=== PATIENT | male | born 1975 | race Caucasian/White ===

== ENCOUNTER 2019-05-27 13:34 | Emergency (ER) | payer BC, SELFPAY ==
[2019-05-27 13:44] VITALS: BP 158/96; PULSE 96; RESP 18; TEMP 37.8; O2SAT 100
--- NOTE | 2019-05-27 13:50 | ED.GENADULT ---
HPI - General Adult General Chief complaint: Upper Respiratory Infection Stated complaint: congestion/body aches/cough Time Seen by Provider: 05/27/19 13:51 Source: patient and RN notes reviewed Mode of arrival: ambulatory Limitations: no limitations History of Present Illness HPI narrative: This is a 44 years old male presents to the office for an evaluation of flu/cold like symptoms since yesterday. Symptoms include body ache, headache, and sore throat. He had received influenza vaccine for the season. He does not smoke. His tested positive for strep. Related Data Home Medications Medication Instructions Recorded Confirmed famotidine 05/27/19 Allergies Allergy/AdvReac Type Severity Reaction Status Date / Time No Known Allergies Allergy Verified 05/27/19 13:47 Review of Systems Review of Systems: Narrative: CONSTITUTIONAL: Reports fever, chills ENT: Reports congestion, sore throat, otalgia. CARDIOVASCULAR: Denies chest pain RESPIRATORY: Denies dyspnea, wheezing. Reports cough GASTROINTESTINAL: Denies abdominal pain, nausea, vomiting, diarrhea. GENITOURINARY: Denies urinary symptoms or discharge SKIN: Denies rash MUSCULOSKELETAL: Denies acute back pain NEUROLOGIC: Denies lightheaded PMFSH Past Medical History Medical History (Updated 05/27/19 @ 14:00 by MEDHAT Bolden) GERD (gastroesophageal reflux disease) Mitral valve prolapse Surgical History Surgical History Hx of appendectomy Social History Social History (Updated 05/27/19 @ 13:52 by MEDHAT Bolden) Smoking status: Never smoker Comments At time of signature, I agree with nursing past medical, surgical, social and family history. There is no relevant family history pertinent to the presenting complaint. Exam Narrative: Exam Narrative: GENERAL: This is a well-nourished, well-developed patient, ill apparent without acute distress. EARS: External ears normal, auditory canals clear and without drainage, TMs normal without perforation. Hearing grossly intact. NOSE: External nose normal with no obvious nasal discharge, nares without redness, no rhinorrhea. THROAT: Mucous membranes moist, posterior pharynx erythema and edematous with drainage. NECK: Neck supple, non-tender without lymphadenopathy, masses or thyromegaly. CARDIOVASCULAR: Regular rate and rhythm without murmurs, gallops, or rubs. RESPIRATORY: Clear to auscultation. Breath sounds equal bilaterally. No wheezes, rales, or rhonchi. GASTROINTESTINAL: Abdomen soft, non-tender, nondistended. Bowel sounds are active. No hepato-splenomegaly, or palpable masses. No guarding. SKIN: warm, intact with no suspicious lesions or rash, good texture and turgor. NEURO: awake, alert, and oriented to person, place and time. There were no obvious focal neurologic abnormalities. Steady gait [place] Coma Scale Eye Opening: Spontaneous 4 [place] Coma Scale Motor: Obeys Commands 6 [place] Coma Scale Verbal: Oriented 5 Course Vital Signs Vital signs: Vital Signs Temperature 100.0 F H 05/27/19 13:44 Pulse Rate 96 05/27/19 13:44 Respiratory Rate 18 05/27/19 13:44 Blood Pressure 158/96 H 05/27/19 13:44 Pulse Oximetry 100 05/27/19 13:44 Temperature 100.0 F H 05/27/19 13:44 Pulse Rate 96 05/27/19 13:44 Respiratory Rate 18 05/27/19 13:44 Blood Pressure 158/96 H 05/27/19 13:44 Pulse Oximetry 100 05/27/19 13:44 Medical Decision Making MDM Narrative Medical decision making narrative: Elevated BP noted: patient is informed that they may have pre-hypertension or hypertension based on a blood pressure reading in the department. I recommend the patient call the primary care provider listed on their discharge instructions or a physician of their choice this week to arrange follow-up for further evaluation of possible pre-hypertension or hypertension within 1-2week. Discharge instructions reviewed wit
== END 2019-05-27 14:05 | disposition home or self-care (01) ==
PROVIDERS: Emergency Provider Nurse Practitioner
DX: J11.1 Influenza due to unidentified influenza virus with other respiratory manifestations (principal); K21.9 Gastro-esophageal reflux disease without esophagitis; I34.1 Nonrheumatic mitral (valve) prolapse
CPT/HCPCS: 87081; 87804; 87880; 99213; G0463